=== PATIENT | female | born 1940 | race Caucasian/White ===

== ENCOUNTER 2025-01-16 06:56 | Day surgery (SDC) | payer MEDICARE, BC, SELFPAY ==
[2025-01-16 07:04] VITALS: BP 163/84; PULSE 74; RESP 16; TEMP 36.6; O2SAT 97
[2025-01-16] MEDS: Tropicam./Phenyleph. (1/2.5%) 5 ML BTL OD ×3 (07:23→07:37)
--- NOTE | 2025-01-16 08:02 | W.PREOPHP ---
Assessment and Plan Assessment and plan (1) Cortical age-related cataract, right eye: Status: Acute Assessment and plan: Assessment: Visually significant cataract of the right eye. Plan: Cataract extraction with intraocular lens implantation of the right eye, followed by the left eye. (2) Nuclear age-related cataract, right eye: Status: Acute Assessment and plan: Assessment: Visually significant cataract of the right eye. Plan: Cataract extraction with intraocular lens implant of the right eye, followed by the left eye. (3) Nuclear age-related cataract, left eye: Status: Acute Assessment and plan: Assessment: Visually significant cataract of the left eye. Plan: Cataract extraction with intraocular lens implant of the right eye, followed by the left eye. (4) Cortical age-related cataract, left eye: Status: Acute Assessment and plan: Assessment: Visually significant cataract of the left eye. Plan: Cataract extraction with intraocular lens implant of the right eye, followed by the left eye. History of Present Illness History of Present Illness Chief Complaint: Progressive decreased vision, both eyes Narrative: The patient is an 83-year-old lady with history of progressive decreased vision in both eyes at both distance and near. She notes difficulty reading street signs and can no longer read fine print. She has difficulty with glare from bright lights. She also notes occasional double vision. Review of Systems All systems reviewed & are unremarkable except as noted in HPI and below PFSH All Active Problems (Updated 01/16/25 @ 08:06 by Vignesh Kaplan MD) Cortical age-related cataract, right eye (Acute) Nuclear age-related cataract, right eye (Acute) Cortical age-related cataract, left eye (Acute) Nuclear age-related cataract, left eye (Acute) Wears hearing aid in both ears (Acute) Impacted cerumen, right ear (Acute) Tinnitus of both ears (Acute) Sensorineural hearing loss, bilateral (Acute 11/21/16) Medical History Colitis Hyperlipidemia Osteoarthritis History of breast cancer Hypertension Surgical History History of hip replacement Bilateral H/O tubal ligation History of tonsillectomy and adenoidectomy Social History Smoking risk assessment performed?: No Alcohol Intake: current Alcohol type: wine Drug use: Never Substance use type: does not use Housing: house Do you feel safe at home: Yes Do you feel safe in your relationship?: Yes Meds Allergies and Home Medications Allergies Allergy/AdvReac Type Severity Reaction Status Date / Time codeine AdvReac Intermediate Nausea Verified 01/16/25 07:20 Home Medications ?Medication ?Instructions ?Recorded ?Confirmed ?Type aspirin 81 mg tablet,delayed 81 mg PO .Q every other day 01/04/23 01/16/25 History release atorvastatin 20 mg tablet 20 mg PO DAILY 01/04/23 01/16/25 History lisinopril 5 mg PO DAILY 08/02/23 01/16/25 History Exam Eyes Other: Most recent ocular examination is significant for corrected visual acuity of 20/60 right eye, 20/40 left eye. Intraocular pressure is 19 OD, 20 OS. Extraocular toileting is normal. Slit-lamp examination significant for mild cortical with moderate nuclear cataract OU. Dilated funduscopic examination shows disc cupping of 0.25 OU with normal vessels, macula, peripheral retina and vitreous. Resp Auscultation: clear to auscultation bilaterally Cardio Rate: regular rate Rhythm: regular rhythm Results Last Vital Signs Temp 36.6 C 01/16/25 07:04 Resp 16 01/16/25 07:04 BP 163/84 H 01/16/25 07:04 Pulse Ox 97 01/16/25 07:04
--- NOTE | 2025-01-16 08:24 | ANES.PREOP_ITS ---
General Info Date of Service Date Performed: 01/16/25 Height: 5 ft 1 in Weight: 68.5 kg Body Mass Index (BMI): 28.5 Surgical Procedure: Operation Date: 01/16/25 09:40 Proposed Procedure Side Surgeon p Cataract Extraction with IOL Implant Right Vignesh Kaplan MD Meds Allergies and Home Medications Allergies Allergy/AdvReac Type Severity Reaction Status Date / Time codeine AdvReac Intermediate Nausea Verified 01/16/25 07:20 Home Medication ?Medication ?Instructions ?Recorded aspirin 81 mg tablet,delayed 81 mg PO .Q every other d ay 01/04/23 release atorvastatin 20 mg tablet 20 mg PO DAILY 01/04/23 lisinopril 5 mg PO DAILY 08/02/23 Current Visit Medications: Current Medications Generic Name Dose Route Start Last Admin Trade Name Freq PRN Reason Stop Dose Admin Acetaminophen 1,000 mg 01/16/25 06:00 Acetaminophen 500 Mg Tab PO 02/15/25 05:59 Q4H PRN PRN Balanced Salt Solution 500 ml 01/16/25 06:00 Balanced Salt Soln.-Plus 500 Ml Bag OP 02/15/25 05:59 DIRECTED KAI Miscellaneous Medication 0 ml 01/16/25 06:00 Prednisolone 1%, Moxifloxacin 0.5%, Bromfenac 0.09% 5.6ml Btl OD 02/15/25 05:59 DIRECTED KAI Miscellaneous Medication 0 ml 01/16/25 06:00 01/16/25 07:37 Tropicam./Phenyleph. (1/2.5%) 5 Ml Btl OD 02/15/25 05:59 1 drp DIRECTED KAI Administration Tetracaine HCl 0 ml 01/16/25 06:00 Tetracaine 0.5% 4 Ml Btl OD 02/15/25 05:59 DIRECTED KAI PFSH Active Problems Active Problems: Problem Status Onset Code Cortical age-related cataract, right eye Acute H25.011 Nuclear age-related cataract, right eye Acute H25.11 Cortical age-related cataract, left eye Acute H25.012 Nuclear age-related cataract, left eye Acute H25.12 Wears hearing aid in both ears Acute Z97.4 Impacted cerumen, right ear Acute H61.21 Tinnitus of both ears Acute H93.13 Sensorineural hearing loss, bilateral Acute 11/21/16 H90.3 Medical History Medical History Colitis Hyperlipidemia Osteoarthritis History of breast cancer Hypertension Surgical History Surgical History History of hip replacement Bilateral H/O tubal ligation History of tonsillectomy and adenoidectomy Tobacco Passive smoking exposure: No Alcohol Alcohol Intake: current Alcohol type: wine Substance Use Substance use: Never Substance use type: does not use Vital Signs and Lab Results Vital Signs Most Recent Vital Signs in EMR: Most Recent Vital Signs Temp Resp BP Pulse Ox 36.6 C 16 163/84 H 97 01/16/25 07:04 01/16/25 07:04 01/16/25 07:04 01/16/25 07:04 Anesthesia Assessment and Plan Anesthesia History Personal History: No History of Anesthesia Complications Family History: No Family History of Anesthesia Complications Exercise Tolerance Exercise Tolerance: Metabolic Equivalents>4 Cardiac & Pulmonary Exam Cardiac Exam: Normal S1/S2 Heart Sounds Pulmonary Exam: Clear Bilateral Breath Sounds Implantable Cardiac Device Does patient have a Pacemaker or an ICD?: No Airway Exam Known Difficult Airway: No Mallampati Class: 2 Mouth Opening: Normal (> 3cm) Thyromental Distance: Greater than 3 cm Neck Range of Motion: Full ROM Neck Circumference: Normal Teeth Condition: Normal Dentition ASA Classification ASA Score: ASA 2 Emergency Case?: No NPO Status NPO Status: NPO Clears >2 hours, Solids >8 hours Anesthesia Plan Resuscitation Status: Full Code Anesthesia Technique: MAC Anesthesia Airway Planned: Natural Airway Monitors Used: Standard Monitors Preoperative Comments:: Desires no MKO.
[2025-01-16 09:26] VITALS: BMI 28.5
[2025-01-16] MEDS: Lidocaine 1% Pres-Free 5 ML VIAL (09:49)
[2025-01-16] MEDS: Moxifloxacin-PF 1 MG/ML VIAL (09:50)
[2025-01-16] MEDS: Phenylephrine/Lidocaine (15/10) MG/ML 1 ML VIAL (09:51)
[2025-01-16] MEDS: Povidone-Iodine Ophth 30 ML BTL (09:53)
[2025-01-16] MEDS: Duovisc Viscoelastic System EACH 1 EACH (09:54)
[2025-01-16] MEDS: Balanced Salt Soln.-PLUS 500 ML BAG OP (09:54)
[2025-01-16] MEDS: Tetracaine 0.5% 4 ML BTL OD (09:55)
[2025-01-16] MEDS: Prednisolone 1%, Moxifloxacin 0.5%, Bromfenac 0.09% 5.6ML BTL OD (09:55)
[2025-01-16 10:11] VITALS: BP 153/84; PULSE 68; RESP 16; TEMP 36.6; O2SAT 97
--- NOTE | 2025-01-16 10:13 | ROE_ITS ---
Operative Note Operative Note PRE-OP DIAGNOSIS: Nuclear/cortical cataract, right eye POST-OP DIAGNOSIS: same PROCEDURE: Cataract extraction using phacoemulsification with intraocular lens implant, right eye SURGEON: Vignesh Kaplan ANESTHESIA TYPE: Local By Surgeon and MAC Refer to Anesthesia Record ESTIMATED BLOOD LOSS: 0 PATHOLOGY: none sent COMPLICATIONS: None Patient was transported to: same day Patient's condition: stable Implants: Mike Clareon [id number] Indications: Progressive decreased vision due to cataract, right eye Procedure Description: CATARACT SURGERY OPERATIVE REPORT PREOPERATIVE DIAGNOSIS: Nuclear/cortical cataract, right eye POSTOPERATIVE DIAGNOSIS: Same OPERATION: Cataract extraction using phacoemulsification with posterior chamber intraocular lens implant, right eye. IOL: IOL Vice President Research/Model: Mike Clareon [id number] IOL Power: + 24.5 diopters IOL Serial Number: [id number] Optic Diameter: 6.0mm Haptic/Overall Diameter: 13.0mm PHACO INFO: Mike Centurion Vision System with OZil and Active Fluidics Cumulative Dispersed Energy (CDE): 10.66 seconds SURGEON: Vignesh Kaplan MD, MCKINLEY ANESTHESIA: Monitored Anesthesia Care (MAC), with local sub-tenon's anesthetic infiltration COMPLICATIONS: None SPECIMENS: None INDICATIONS FOR PROCEDURE: The patient is an 84-year-old lady with history of diminished visual acuity in her right eye secondary to the development of nuclear/cortical cataract. She is significantly symptomatic that she desires cataract surgery and attempt to improve and maximize her vision. The option of cataract surgery was offered to the patient and she wished to proceed. See office notes for detailed information. PROCEDURE: The correct surgical eye was identified and marked as the right eye and the pupil was dilated in the preoperative area using mydriatics and cycloplegics. The dilated pupil size was 7.0 mm. Oral sedation was administered in the form of an Imprimis MKO Melt (midazolam 3mg/ketamine 25mg/ondansetron 2mg). The patient elected to proceed without oral sedation. The patient was brought to the operating room where cardiopulmonary monitoring was instituted and surgical time-out was performed, confirming the correct operative eye and IOL power. Topical anesthesia was administered and ophthalmic povidone-iodine 5% was instilled into the conjunctival fornices. The khadijah-ocular area was prepped with Betadine 10% solution and draped in the usual sterile fashion for intraocular surgery, including an aperture drape. A Tegaderm transparent film dressing was cut in half and used to cover the lashes and lid margins. Care was taken to sequester the lashes and lid margins under the Tegaderm dressing. A lid speculum was placed between the lids of the operative eye and the Mike Lux[employer] Revalia operating microscope was maneuvered into position. Juliana scissors were then used to make a conjunctival buttonhole approximately 6mm posterior to the limbus in the inferonasal quadrant. Blunt dissection was carried out to expose bare sclera, and a blunt-tipped sub-tenon?s anesthesia cannula was introduced and passed posteriorly along the globe where non- preserved plain lidocaine was injected into posterior sub-Tenon?s space. A sideport knife was used to make a paracentesis port. Intraocular phenylephrine/lidocaine was injected into the anterior chamber. The anterior chamber was then filled with viscoelastic. A keratome knife was used to construct a two--plane clear corneal tunnel extending 2.0mm into clear cornea. A flap was raised on the anterior capsule and capsulorhexis forceps were used to complete a continuous curvilinear capsulorhexis of 5.0 mm. Balanced salt solution was then used to perform cortical cleaving hydrodissection and nuclear hydrodelineation until the lens could be freely rotated within the capsular bag. The lens nucleus was then disassembled and r emoved within the capsular bag and iris plane using phacoemulsification. Residual cortical material was removed using the I/A handpiece. The posterior capsule was carefully polished to remove as much residual lens epithelial cells as safely possible. The capsular bag was then inflated and the anterior chamber deepened with cohesive viscoelastic. The lens implant described above was inserted into the capsular bag using the Mike Autonome Injector. A Kuglen hook was used to dial the IOL into position. Residual viscoelastic was then removed first from posterior to the IOL, then from the anterior chamber using the I/A handpiece. The lens implant was noted to center nicely within the capsular bag. The incisions were stromally hydrated, and the anterior chamber was reformed using BSS. Then 0.5cc of moxifloxacin 1.0mg/ml were injected into the capsular bag and anterior chamber. The incisions were checked with a Weck spear and found to be secure. Several drops of ophthalmic povidone-iodine 5% were then applied to the eye followed by two drops of combination steroid/NSAID/antibiotic solution. The drapes were removed and a clear plastic protective eye shield was placed over the eye. The patient was then returned to Same Day Surgery in stable condition. Date of Procedure: 01/16/25
--- NOTE | 2025-01-16 10:13 | W.PM.DSUDISC ---
Date of service: 01/16/25 Discharge Plan Disposition Patient Disposition: Home Discharge Details Attending Provider: Vignesh Kaplan Primary Care Provider: Sandee Regan Home Meds and New Rx's Prescriptions: No Action atorvastatin 20 mg tablet 20 mg PO DAILY aspirin 81 mg tablet,delayed release (DR/EC) 81 mg PO .Q every other day lisinopril 5 mg PO DAILY Discharge Instructions Stand Alone Forms: [facility] Post-Op CataractJoanne ([facility]) Discharge Orders Discharge Orders: Discharge Order (Routine); Ordered 01/16/25 Ordered By: Vignesh Kaplan DS: Diagnosis Discharge Diagnosis (1) Cortical age-related cataract, right eye: Status: Resolved (2) Nuclear age-related cataract, right eye: Status: Resolved
--- NOTE | 2025-01-16 10:54 | W.ANESPOSTOP ---
Postoperative Evaluation Date, Time and Location Date Performed: 01/16/25 Time Performed: 10:15 Patient Location: Day Surgery Unit Vital Signs Most Recent Imported Vital Signs: Most Recent Vital Signs Temp Pulse Resp BP Pulse Ox 36.6 C 68 16 153/84 H 97 01/16/25 10:11 01/16/25 10:11 01/16/25 10:11 01/16/25 10:11 01/16/25 10:11 Pain Score Most Recent Pain Score: Most Recent Pain Score Pain Level 0 01/16/25 10:11 Assessment Mental Status: Awake (Alert & Oriented to Patient Baseline) Airway and Respiratory Function: Patent airway with normal (patient baseline) respiratory exam Cardiovascular Function: Hemodynamically Stable Hydration Status: Adequately Hydrated Nausea & Vomiting: No Nausea or Vomiting Pain: Pt. Denies Any Pain Peripheral Nerve Block: Patient did not receive a nerve block
== END 2025-01-16 10:25 | disposition home or self-care (01) ==
LOC: SUR 06:57
PROVIDERS: PCP Nurse Practitioner Family; Visit Provider Ophthalmology
PROC: (CPT 66984; principal; 2025-01-16 09:30)
DX: H25.011 Cortical age-related cataract, right eye (principal); H25.11 Age-related nuclear cataract, right eye; H25.12 Age-related nuclear cataract, left eye
CPT/HCPCS: 66984; 00123; V2632; J2003

== ENCOUNTER 2025-01-23 06:36 | Day surgery (SDC) | payer MEDICARE, BC, SELFPAY ==
[2025-01-23] MEDS: Tropicam./Phenyleph. (1/2.5%) 5 ML BTL OS ×3 (06:53→07:11)
[2025-01-23 06:56] VITALS: BP 151/84; PULSE 67; RESP 16; TEMP 36.5; O2SAT 100
--- NOTE | 2025-01-23 07:39 | ANES.PREOP_ITS ---
General Info Date of Service Date Performed: 01/23/25 Height: 5 ft 1 in Weight: 67.7 kg Body Mass Index (BMI): 28.2 Surgical Procedure: Operation Date: 01/23/25 08:40 Proposed Procedure Side Surgeon p Cataract Extraction with IOL Implant Left Vignesh Kaplan MD Meds Allergies and Home Medications Allergies Allergy/AdvReac Type Severity Reaction Status Date / Time codeine AdvReac Intermediate Nausea Verified 01/23/25 07:04 Home Medication ?Medication ?Instructions ?Recorded aspirin 81 mg tablet,delayed 81 mg PO .Q every other d ay 01/04/23 release atorvastatin 20 mg tablet 20 mg PO DAILY 01/04/23 lisinopril 5 mg PO DAILY 08/02/23 Current Visit Medications: Current Medications Generic Name Dose Route Start Last Admin Trade Name Freq PRN Reason Stop Dose Admin Acetaminophen 1,000 mg 01/23/25 06:00 Acetaminophen 500 Mg Tab PO 02/22/25 05:59 Q4H PRN PRN Balanced Salt Solution 500 ml 01/23/25 06:00 Balanced Salt Soln.-Plus 500 Ml Bag OP 02/22/25 05:59 DIRECTED KAI Miscellaneous Medication 0 ml 01/23/25 06:00 Prednisolone 1%, Moxifloxacin 0.5%, Bromfenac 0.09% 5.6ml Btl OS 02/22/25 05:59 DIRECTED KAI Miscellaneous Medication 0 ml 01/23/25 06:00 01/23/25 07:11 Tropicam./Phenyleph. (1/2.5%) 5 Ml Btl OS 02/22/25 05:59 1 drp DIRECTED KAI Administration Tetracaine HCl 0 ml 01/23/25 06:00 Tetracaine 0.5% 4 Ml Btl OS 02/22/25 05:59 DIRECTED KAI PFSH Active Problems Active Problems: Problem Status Onset Code Cortical age-related cataract, right eye Resolved H25.011 Nuclear age-related cataract, right eye Resolved H25.11 Cortical age-related cataract, left eye Acute H25.012 Nuclear age-related cataract, left eye Acute H25.12 Wears hearing aid in both ears Acute Z97.4 Impacted cerumen, right ear Acute H61.21 Tinnitus of both ears Acute H93.13 Sensorineural hearing loss, bilateral Acute 11/21/16 H90.3 Medical History Medical History Colitis Hyperlipidemia Osteoarthritis History of breast cancer Hypertension Surgical History Surgical History History of hip replacement Bilateral H/O tubal ligation History of tonsillectomy and adenoidectomy Tobacco Passive smoking exposure: No Alcohol Alcohol Intake: current Alcohol type: wine Substance Use Substance use: Never Substance use type: does not use Vital Signs and Lab Results Vital Signs Most Recent Vital Signs in EMR: Most Recent Vital Signs Temp Pulse Resp BP Pulse Ox 36.5 C 67 16 151/84 H 100 01/23/25 06:56 01/23/25 06:56 01/23/25 06:56 01/23/25 06:56 01/23/25 06:56 Anesthesia Assessment and Plan Anesthesia History Personal History: No History of Anesthesia Complications Family History: No Family History of Anesthesia Complications Exercise Tolerance Exercise Tolerance: Metabolic Equivalents>4 Pertinent Negatives Pertinent Negatives: No Symptoms of GERD Cardiac & Pulmonary Exam Cardiac Exam: Normal S1/S2 Heart Sounds Pulmonary Exam: Clear Bilateral Breath Sounds Implantable Cardiac Device Does patient have a Pacemaker or an ICD?: No Airway Exam Known Difficult Airway: No Mallampati Class: 2 Mouth Opening: Normal (> 3cm) Thyromental Distance: Greater than 3 cm Neck Range of Motion: Full ROM Neck Circumference: Normal Teeth Condition: Normal Dentition ASA Classification ASA Score: ASA 2 Emergency Case?: No NPO Status NPO Status: NPO Clears >2 hours, Solids >8 hours Anesthesia Plan Resuscitation Status: Full Code Anesthesia Technique: MAC Anesthesia Airway Planned: Natural Airway Monitors Used: Standard Monitors
[2025-01-23 07:57] VITALS: BMI 28.2
[2025-01-23] MEDS: Lidocaine 1% Pres-Free 5 ML VIAL (08:19)
[2025-01-23] MEDS: Duovisc Viscoelastic System EACH 1 EACH (08:19)
[2025-01-23] MEDS: Povidone-Iodine Ophth 30 ML BTL (08:20)
[2025-01-23] MEDS: Balanced Salt Soln.-PLUS 500 ML BAG OP (08:21)
[2025-01-23] MEDS: Tetracaine 0.5% 4 ML BTL OS (08:21)
[2025-01-23] MEDS: Phenylephrine/Lidocaine (15/10) MG/ML 1 ML VIAL (08:23)
[2025-01-23] MEDS: Moxifloxacin-PF 1 MG/ML VIAL (08:24)
[2025-01-23] MEDS: Prednisolone 1%, Moxifloxacin 0.5%, Bromfenac 0.09% 5.6ML BTL OS (08:26)
[2025-01-23 08:44] VITALS: BP 139/71; PULSE 62; RESP 16; TEMP 36.1; O2SAT 100
--- NOTE | 2025-01-23 08:46 | W.PM.DSUDISC ---
Date of service: 01/23/25 Discharge Plan Disposition Patient Disposition: Home Discharge Details Attending Provider: Vignesh Kaplan Primary Care Provider: Simone Rock Home Meds and New Rx's Prescriptions: No Action atorvastatin 20 mg tablet 20 mg PO DAILY aspirin 81 mg tablet,delayed release (DR/EC) 81 mg PO .Q every other day lisinopril 5 mg PO DAILY Discharge Instructions Stand Alone Forms: [facility] Post-Op Cataract, Joanne Bloom ([facility]) Discharge Orders Discharge Orders: Discharge Order (Routine); Ordered 01/23/25 Ordered By: Vignesh Kaplan DS: Diagnosis Discharge Diagnosis (1) Cortical age-related cataract, left eye: Status: Resolved (2) Nuclear age-related cataract, left eye: Status: Resolved
--- NOTE | 2025-01-23 08:47 | ROE_ITS ---
Operative Note Operative Note PRE-OP DIAGNOSIS: Nuclear/cortical cataract, left eye POST-OP DIAGNOSIS: same PROCEDURE: Cataract extraction using phacoemulsification with intraocular lens implant, left eye SURGEON: Vignesh Kaplan ANESTHESIA TYPE: Local By Surgeon and MAC Refer to Anesthesia Record PATHOLOGY: none sent COMPLICATIONS: None Patient was transported to: same day Patient's condition: stable Implants: Mike Clareon [id number] Indications: Progressive decreased vision due to cataract, left eye Procedure Description: CATARACT SURGERY OPERATIVE REPORT PREOPERATIVE DIAGNOSIS: Nuclear/cortical cataract, left eye POSTOPERATIVE DIAGNOSIS: Same OPERATION: Cataract extraction using phacoemulsification with posterior chamber intraocular lens implant, left eye. IOL: IOL Mold Technician/Model: Mike Clareon [id number] IOL Power: + 25.0 diopters IOL Serial Number: [id number] Optic Diameter: 6.0mm Haptic/Overall Diameter: 13.0mm PHACO INFO: Mike Centurion Vision System with OZil and Active Fluidics Cumulative Dispersed Energy (CDE): 10.14 seconds SURGEON: Vignesh Kaplan MD, MCKINLEY ANESTHESIA: Monitored Anesthesia Care (MAC), with local sub-tenon's anesthetic infiltration COMPLICATIONS: None SPECIMENS: None INDICATIONS FOR PROCEDURE: The patient is an 84-year-old lady with history of diminished visual acuity in both eyes secondary to the development of bilateral nuclear/cortical cataract. She has already undergone cataract surgery in the right eye and is doing well postoperatively. She now presents for cataract surgery in the left eye. See office notes for detailed information. PROCEDURE: The correct surgical eye was identified and marked as the left eye and the pupil was dilated in the preoperative area using mydriatics and cycloplegics. The dilated pupil size was 7.0 mm. The patient elected to proceed without oral sedation. The patient was brought to the operating room where cardiopulmonary monitoring was instituted and surgical time-out was performed, confirming the correct operative eye and IOL power. Topical anesthesia was administered and ophthalmic povidone-iodine 5% was instilled into the conjunctival fornices. The khadijah-ocular area was prepped with Betadine 10% solution and draped in the usual sterile fashion for intraocular surgery, including an aperture drape. A Tegaderm transparent film dressing was cut in half and used to cover the lashes and lid margins. Care was taken to sequester the lashes and lid margins under the Tegaderm dressing. A lid speculum was placed between the lids of the operative eye and the Mike [employer] Revalia operating microscope was maneuvered into position. Juliana scissors were then used to make a conjunctival buttonhole approximately 6mm posterior to the limbus in the inferonasal quadrant. Blunt dissection was carried out to expose bare sclera, and a blunt-tipped sub-tenon?s anesthesia cannula was introduced and passed posteriorly along the globe where non- preserved plain lidocaine was injected into posterior sub-Tenon?s space. A sideport knife was used to make a paracentesis port. Intraocular phenylephrine/lidocaine was injected into the anterior chamber. The anterior chamber was then filled with viscoelastic. A keratome knife was used construct a two-plane clear corneal tunnel extending 2.0mm into clear cornea. A flap was raised on the anterior capsule and capsulorhexis forceps were used to complete a continuous curvilinear capsulorhexis of 5.0 mm. Balanced salt solution was then used to perform cortical cleaving hydrodissection and nuclear hydrodelineation until the lens could be freely rotated within the capsular bag. The lens nucleus was then disassembled and rem marvin within the capsular bag and iris plane using phacoemulsification. Residual cortical material was removed using the irrigation/aspiration handpiece. The posterior capsule was carefully polished to remove as much residual lens epithelial cells as safely possible. The capsular bag was then inflated and the anterior chamber deepened with viscoelastic. The lens implant described above was inserted into the capsular bag using the Mike Autonome Injector. A Kuglen hook was used to dial the IOL into position. Residual viscoelastic was then removed first from posterior to the IOL, then from the anterior chamber using the I/A handpiece. The lens implant was noted to center nicely within the capsular bag. The incisions were stromally hydrated, and the anterior chamber was reformed using BSS. Then 0.5cc of moxifloxacin 1.0mg/ml were injected into the capsular bag and anterior chamber. The incisions were checked with a Weck spear and found to be secure. Several drops of ophthalmic povidone-iodine 5% were then applied to the eye followed by two drops of combination steroid/NSAID/antibiotic solution. The drapes were removed and a clear plastic protective eye shield was placed over the eye. The patient was then returned to Same Day Surgery in stable condition. Date of Procedure: 01/23/25
--- NOTE | 2025-01-23 08:52 | W.ANESPOSTOP ---
Postoperative Evaluation Date, Time and Location Date Performed: 01/23/25 Time Performed: 08:52 Patient Location: Day Surgery Unit Vital Signs Most Recent Imported Vital Signs: Most Recent Vital Signs Temp Pulse Resp BP Pulse Ox 36.1 C L 62 16 139/71 100 01/23/25 08:44 01/23/25 08:44 01/23/25 08:44 01/23/25 08:44 01/23/25 08:44 Pain Score Most Recent Pain Score: Most Recent Pain Score Pain Level 0 01/23/25 08:44 Assessment Mental Status: Awake (Alert & Oriented to Patient Baseline) Airway and Respiratory Function: Patent airway with normal (patient baseline) respiratory exam Cardiovascular Function: Hemodynamically Stable Hydration Status: Adequately Hydrated Nausea & Vomiting: No Nausea or Vomiting Pain: Pt. Denies Any Pain Peripheral Nerve Block: Patient did not receive a nerve block
== END 2025-01-23 08:59 | disposition home or self-care (01) ==
PROVIDERS: PCP Family Medicine; Visit Provider Ophthalmology
PROC: (CPT 66984; principal; 2025-01-23 08:30)
DX: H25.012 Cortical age-related cataract, left eye (principal); H25.12 Age-related nuclear cataract, left eye; Z98.41 Cataract extraction status, right eye
CPT/HCPCS: 66984; 00123; V2632; J2003